=== PATIENT | female | born 1990 | race Caucasian/White ===

== ENCOUNTER 2019-03-24 21:41 | Emergency (ER) | payer BC ==
[2019-03-24 21:53] VITALS: BP 133/83
[2019-03-24] MEDS ORDERED: AMOX/CLAV 875 MG/125 MG TABLET PO STA (22:33)
--- NOTE | 2019-03-24 22:35 | ED Physician Documentation ---
History of Present Illness - Stated complaint Stated Complaint: LFT EAR PX - Chief complaint Chief Complaint: Heent - History obtained from History obtained from: Patient, Family - History of Present Illness Timing: How many days ago (3) Pain level max: 6 Pain level now: 5 - Additonal information Additional information: Patient with left ear pain for the past few days. Feels similar to prior infections in the past. No fevers. No vomiting. Nothing makes it better or worse. Review of Systems Constitutional: denies: Fever Throat: denies: Sore throat Respiratory: denies: Cough GI: denies: Nausea, Vomiting, Diarrhea : denies: Now [facility] PAST MEDICAL HISTORY - Past Medical History Past Medical History: No - Present Medications Home Medications: Ambulatory Orders Medication Instructions Recorded Confirmed Amox/Clav 875/125 [Augmentin] 1 each PO Q12H #20 tablet 03/24/19 - Allergies Allergies/Adverse Reactions: Allergies Allergy/AdvReac Type Severity Reaction Status Date / Time No Known Drug Allergies Allergy Verified 03/24/19 21:52 PD ED PE NORMAL - Vitals Vital signs reviewed: Yes - General General: Alert and oriented X 3, No acute distress - HEENT HEENT: Moist mucous membranes, Pharynx benign, Other (Right TM is normal. Left TM is erythematous, dull, bulging with loss of landmarks. Fluid present.) - Neck Neck: Supple, no meningeal sign, No adenopathy - Cardiac Cardiac: RRR - Respiratory Respiratory: No respiratory distress, Clear bilaterally - Abdomen Abdomen: Soft, Non tender, Non distended - Derm Derm: Warm and dry - Neuro Neuro: Alert and oriented X 3 Results - Vitals Vitals: Vital Signs - 24 hr 03/24/19 21:50 Temperature 36.7 C Heart Rate 85 Respiratory 16 Rate Blood Pressure 133/83 H O2 Saturation 99 Oxygen O2 Source Room air PD MEDICAL DECISION MAKING - ED course Complexity details: considered differential, d/w patient ED course: Patient with a left acute otitis media. Will place on antibiotics for home. She is well-appearing, nontoxic. Afebrile. Patient counseled regarding signs and symptoms for which I believe and urgent re-evaluation would be necessary. Patient with good understanding of and agreement to plan and is comfortable going home at this time This document was made in part using voice recognition software. While efforts are made to proofread this document, sound alike and grammatical errors may occur. Departure - Departure Disposition: 01 Home, Self Care Clinical Impression: Left acute otitis media Condition: Good Instructions: ED Otitis Media Acute Adult Follow-Up: Padmini Quinn PA-C [Primary Care Provider] - As Needed Prescriptions: Amox/Clav 875/125 [Augmentin] 1 each PO Q12H #20 tablet Comments: Take all antibiotics until gone. Return if you worsen. Discharge Date/Time: 03/24/19 22:45
== END 2019-03-24 22:45 | disposition home or self-care (01) ==
LOC: ED 21:41
DX: H66.92 Otitis media, unspecified, left ear (principal)
CPT/HCPCS: 99283; A9270